=== PATIENT | male | born 1955 | race Caucasian/White ===

== ENCOUNTER 2023-06-11 08:52 | Emergency (ER) | payer BC, MEDICARE ==
[2023-06-11] MEDS ORDERED: methylPREDNISolone SOD SUCCI 125 MG/2 ML VIAL IM ONE (08:59)
[2023-06-11] MEDS ORDERED: diphenhydrAMINE 50 MG CAP PO STA (08:59)
--- NOTE | 2023-06-11 09:07 | ED ---
Skin/Abscess/FB HPI - General Chief complaint: Skin/Abscess/Foreign Body Stated complaint: Rash,Started on R Arm Time Seen by Provider: 06/11/23 08:58 Source: patient, RN notes reviewed Mode of arrival: ambulatory Limitations: no limitations - History of Present Illness Initial comments: 67-year-old male presents emergency Department with chief complaint rash. Patient states that the rash started approximate 4-5 days ago. He states bending different he had covid and flu vaccine a day and half prior to the rash starting. He states he recently traveled from [place] he is unsure if he came in contact with something. Patient states it's very itchy he states that he has noted hives. Patient denies a difficulty breathing no difficult swallowing. He has not tried any oral medications he states she's been using topical Benadryl - Related Data Previous Rx's Medication Instructions Recorded diphenhydrAMINE [Benadryl] 50 mg PO QID PRN #20 capsule 06/11/23 predniSONE 50 mg PO DAILY #5 tab 06/11/23 Allergies Allergy/AdvReac Type Severity Reaction Status Date / Time No Known Allergies Allergy Verified 06/11/23 08:59 Review of Systems ROS Statement: Those systems with pertinent positive or pertinent negative responses have been documented in the HPI. ROS Other: All systems not noted in ROS Statement are negative. Past Medical History Past Medical History: Hyperlipidemia History of Any Multi-Drug Resistant Organisms: None Reported Past Surgical History: No Surgical Hx Reported Past Psychological History: No Psychological Hx Reported Smoking Status: Never smoker Past Alcohol Use History: None Reported Past Drug Use History: None Reported General Exam Limitations: no limitations General appearance: alert, in no apparent distress Head exam: Present: atraumatic, normocephalic, normal inspection Eye exam: Present: normal appearance, PERRL, EOMI, other (Mild rash of the face). Absent: scleral icterus, conjunctival injection, periorbital swelling ENT exam: Present: normal oropharynx, mucous membranes moist, TM's normal bilaterally Neck exam: Present: normal inspection, full ROM. Absent: tenderness, meningismus, lymphadenopathy Respiratory exam: Present: normal lung sounds bilaterally. Absent: respiratory distress, wheezes, rales, rhonchi, stridor Cardiovascular Exam: Present: regular rate, normal rhythm, normal heart sounds. Absent: systolic murmur, diastolic murmur, rubs, gallop, clicks Skin exam: Present: warm, dry, intact, normal color, rash Course Vital Signs 06/11/23 08:53 Temperature 98 F Pulse Rate 86 Respiratory 16 Rate Blood Pressure 162/88 O2 Sat by Pulse 98 Oximetry Medical Decision Making - Medical Decision Making Was pt. sent in by a medical professional or institution (DAKSHA Jimenez, FLAT BED OPERATOR, urgent care, hospital, or correction...) When possible be specific @ -No Did you speak to anyone other than the patient for history (EMS, parent, family, police, friend...)? What history was obtained from this source @ -No Did you review nursing and triage notes (agree or disagree)? Why? @ -I reviewed and agree with nursing and triage notes Were old charts reviewed (outside hosp., previous admission, EMS record, old EKG, old radiological studies, urgent care reports/EKG's, correction records)? Report findings @ -No old charts were reviewed Differential Diagnosis (chest pain, altered mental status, abdominal pain women, abdominal pain men, vaginal bleeding, weakness, fever, dyspnea, syncope, headache, dizziness, GI bleed, back pain, seizure, CVA, palpatations, mental health, musculoskeletal)? @ -ALLERGIC reaction, contact dermatitis EKG interpreted by me (3pts min.). @ -None X-rays interpreted by me (1pt min.). @ -None done CT interpreted by me (1pt min.). @ -None done U/S interpreted by me (1pt. min.). @ -None done What testing was considered but not performed or refused? (CT, X-rays, U/S, labs)? Why? @ -None What meds were considered but not given or refused? Why? @ -None Did you discuss the management of the patient with other professionals (nara hess i.eDAKSHA Kilgore Dr[address] FLAT BED OPERATOR, lab, RT, psych nurse, medical social worker, medication care manager, teacher, affirmative action officer, case management manager)? Give summary @ -No Was smoking cessation discussed for >3mins.? @ -No Was critical care preformed (if so, how long)? @ -No Were there social determinants of health that impacted care today? How? (Homelessness, low income, unemployed, alcoholism, drug addiction, transportation, low edu. Level, literacy, decrease access to med. care, detention, rehab)? @ -No Was there de-escalation of care discussed even if they declined (Discuss DNR or withdrawal of care, Hospice)? DNR status @ -No What co-morbidities impacted this encounter? (DM, HTN, Smoking, COPD, CAD, Cancer, CVA, ARF, Chemo, Hep., AIDS, mental health diagnosis, sleep apnea, morbid obesity)? @ -None Was patient admitted / discharged? Hospital course, mention meds given and route, prescriptions, significant lab abnormalities, going to OR and other pertinent info. @ -Discharge patient is on day 4-5 of ALLERGIC reaction. Patient has not tried any oral anti-histamines. Patient was given Solu-Medrol, Benadryl. Patient discharged with steroids, Benadryl return parameters were discussed. Undiagnosed new problem with uncertain prognosis? @ -No Drug Therapy requiring intensive monitoring for toxicity (Heparin, Nitro, Insulin, Cardizem)? @ -No Were any procedures done? @ -No Diagnosis/symptom? @ -ALLERGIC reaction Acute, or Chronic, or Acute on Chronic? @ -Acute Uncomplicated (without systemic symptoms) or Complicated (systemic symptoms)? @ -Uncomplicated Side effects of treatment? @ -No Exacerbation, Progression, or Severe Exacerbation? @ -No Poses a threat to life or bodily function? How? (Chest pain, [place], [place], pneumonia, PE, COPD, DKA, ARF, appy, cholecystitis, CVA, Diverticulitis, Homicidal, Suicidal, threat to staff... and all critical care pts) @ -No Disposition Clinical Impression: Allergic reaction Disposition: HOME SELF-CARE Condition: Stable Instructions (If sedation given, give patient instructions): General Allergic Reaction (ED) Additional Instructions: Please return to the Emergency Department if symptoms worsen or any other concerns. Prescriptions: diphenhydrAMINE [Benadryl] 50 mg PO QID PRN #20 capsule PRN Reason: Allergic Reaction predniSONE 50 mg PO DAILY #5 tab Is patient prescribed a controlled substance at d/c from ED?: No Referrals: Nonstaff,Physician [Primary Care Provider] - 1-2 days Time of Disposition: 09:06
[2023-06-11 09:15] VITALS: RESP 16; TEMP 98
[2023-06-11 09:54] VITALS: BP 145/78; PULSE 80
== END 2023-06-11 09:47 | disposition home or self-care (01) ==
LOC: EC 08:52
DX: T80.62XA Other serum reaction due to vaccination, initial encounter (principal); R21 Rash and other nonspecific skin eruption
CPT/HCPCS: 99283; 96372; J2930; 99282

== ENCOUNTER → 2024-01-04 | Outpatient (CLI) | payer BC ==
[2024-01-04 07:20] LABS: African American GFR (CKD) >90 (>60 ml/min/1.73 sqM); Blood Urea Nitrogen 10 mg/dL (9-20); Non-African American GFR(CKD) >90 (>60 ml/min/1.73 sqM)
--- NOTE | 2024-01-04 09:23 | CT ---
EXAMINATION TYPE: CT chest w con DATE OF EXAM: 01/04/2024 COMPARISON: None HISTORY: 68-year-old male R91.1, Lung nodule TECHNIQUE: Contiguous axial scanning of the chest after the administration of 100 mL of Isovue 300. Coronal/sagittal reconstructions performed. CT DLP: 452.30mGycm. Automatic exposure control utilized for a dose reduction. FINDINGS: The heart is normal size without pericardial effusion. LAD coronary artery calcifications are present . Conventional arch vessel branching anatomy. Ectatic upper descending thoracic aorta 3.4 cm. Borderlin e aneurysm mid descending thoracic aorta 3.0 cm an ectatic lower descending thoracic aorta to 2.8 cm. There is large caliber to the main right and left pulmonary arteries measuring up to 2.8 cm suggestin g underlying pulmonary hypertension. No thoracic lymph adenopathy is size criteria. Minimal biapical pleural parenchymal scarring. No consolidation or pleural effusion. Minimal scattere d emphysematous change noted. No suspicious pulmonary nodule is seen. There is a small hiatal hernia. Scattered small hepatic cysts measuring up to 8 mm. Fullness of the bilateral renal collecting systems. Consider short interval follow-up to exclude any early developing hydronephrosis. Bones: Moderate degenerative disc disease mid to lower thoracic spine. Superior endplate compression deformity T7 is age indeterminate with suspected chronic given the lack of any paravertebral soft tis gee swelling. IMPRESSION: 1. COPD with minimal emphysema. 2. No definite suspicious pulmonary nodule is seen. If persistent concern, the exam can be reviewed w ith directed attention. 3. There may be underlying pulmonary arterial hypertension. 4. Partially visualized fullness of the bilateral renal collecting systems. This may be a transient f inding. Consider short interval follow-up renal ultrasound to exclude early developing hydronephrosis . 5. Small hiatal hernia.
== END | disposition home or self-care (01) ==
LOC: RADCTMAIN 06:14
DX: J44.9 Chronic obstructive pulmonary disease, unspecified (principal); J43.9 Emphysema, unspecified; K44.9 Diaphragmatic hernia without obstruction or gangrene; R91.1 Solitary pulmonary nodule
CPT/HCPCS: 82565; 84520; 71260; 36415; Q9967

== ENCOUNTER → 2024-02-18 | Outpatient (CLI) | payer BC ==
--- NOTE | 2024-02-18 14:42 | US ---
EXAMINATION TYPE: US kidneys/renal and bladder DATE OF EXAM: 02/18/2024 COMPARISON: NONE CLINICAL INDICATION: Male, 68 years old with history of N28.89 OTHER SPECIFIED DISORDERS OF KIDNEY AN D URE; renal fullness mentioned on recent CT EXAM MEASUREMENTS: Right Kidney: 10.5 x 4.4 x 4.8 cm Left Kidney: 11.3 x 3.6 x 6.1 cm Right Kidney: No hydronephrosis or masses seen Left Kidney: No hydronephrosis or masses seen Bladder: wnl Bilateral Jets seen: Yes There is no evidence for hydronephrosis at this point in time. No nephrolithiasis is seen. No lev s are identified. The urinary bladder is anechoic. Bilateral ureteral jets are seen. IMPRESSION: No significant abnormality of the kidneys or urinary bladder
== END | disposition home or self-care (01) ==
LOC: RADUSWWP 13:21
PROVIDERS: ATTEND Family Medicine
DX: N28.89 Other specified disorders of kidney and ureter (principal)
CPT/HCPCS: 76770

== ENCOUNTER → 2024-04-04 | Outpatient (CLI) | payer BC | END | disposition home or self-care (01) | LOC: LABPRL 08:30 | PROVIDERS: ATTEND Family Medicine | DX: R05.9 Cough, unspecified (principal) | CPT/HCPCS: 87635 ==

== ENCOUNTER → 2024-07-22 | Outpatient (CLI) | payer BC ==
[2024-07-22 08:14] LABS: African American GFR (CKD) >90 (>60 ml/min/1.73 sqM); Blood Urea Nitrogen 8 mg/dL (9-20); Non-African American GFR(CKD) >90 (>60 ml/min/1.73 sqM)
--- NOTE | 2024-07-22 12:44 | CT ---
EXAMINATION TYPE: CT chest w con CT DLP: 463.7 mGycm, Automated exposure control for dose reduction was used. DATE OF EXAM: 07/22/2024 8:28 AM COMPARISON: CT chest 01/04/2024 CLINICAL INDICATION:Male, 69 years old with history of R91.1 PULM NODULE; PHH, Lung nodules TECHNIQUE: Multiple axial images were obtained through the chest following the administration of 100 cc of Isovue 300. . Coronal and sagittal reformats reviewed. FINDINGS: LUNGS/ PLEURA: No pleural effusion, pneumothorax, focal consolidation. Minimal biapical pleural-paren chymal scarring. Minimal scattered emphysematous changes noted. No suspicious pulmonary nodules or ma sses. AIRWAY: Patent and unremarkable.. HEART: Size within normal limits.No significant pericardial effusion. Small coronary calcifications. MEDIASTINUM: No gross evidence of adenopathy. VASCULATURE: No aortic aneurysm. MUSCULOSKELETAL: Moderate degenerative disc disease mid to lower thoracic spine. Chronic superior end plate compression deformity T7. SOFT TISSUES/LYMPH NODES: Unremarkable. LOWER NECK: No significant findings. UPPER ABDOMEN: Couple of stable subcentimeter hypodense foci within the liver which are too small to characterize but likely represent cysts. Small hiatal hernia. No appearance of the visualized bilater al renal collecting systems. IMPRESSION: 1. No suspicious pulmonary nodule or mass. 2. Minimal COPD changes. [facility], , 07/22/2024 12:42 PM
== END | disposition home or self-care (01) ==
LOC: RADCTMAIN 07:32
PROVIDERS: ATTEND Thoracic Surgery (Cardiothoracic Vascular Surgery)
DX: J44.9 Chronic obstructive pulmonary disease, unspecified (principal); R91.1 Solitary pulmonary nodule; K44.9 Diaphragmatic hernia without obstruction or gangrene
CPT/HCPCS: 82565; 84520; 71260; 36415; Q9967

== ENCOUNTER → 2024-08-15 | Outpatient (CLI) | payer BC ==
[2024-08-15 13:56] LABS: African American GFR (CKD) >90 (>60 ml/min/1.73 sqM); Blood Urea Nitrogen 5 mg/dL (9-20); Non-African American GFR(CKD) >90 (>60 ml/min/1.73 sqM)
--- NOTE | 2024-08-15 14:29 | CT ---
EXAMINATION TYPE: CT soft tissue neck w con DATE OF EXAM: 08/15/2024 2:15 PM COMPARISON: None. CLINICAL INDICATION: Male, 69 years old with history of R51.9 HEADACHE; PHH, Lump on the back of head , marked by radiopaque BB. Pt states it throbs and he has had it for 1 year. TECHNIQUE: Standard enhanced CT of the neck. Axial sections with coronal and sagittal reformats were obtained. Contrast used:100 ml mL of Isovue 300 with IV Contrast, (None if empty) Oral contrast used: (None if empty) CT DLP: 678 mGycm, Automated exposure control for dose reduction was used. FINDINGS: Brain: Visualized portions are grossly unremarkable. Orbits: Unremarkable Sinuses: Grossly unremarkable. Spaces of the neck: Clear and symmetric. Palpable abnormality in the left posterior scalp does not de monstrate mass, organizing fluid collection or lymph node. There are a few superficial vessels in thi s region which are no however different from the contralateral side. No other finding visualized. Musculoskeletal: No acute osseous pathology. Lymph nodes: Multiple nonenlarged lymph nodes are seen along both anterior chains of the neck. Vascular structures: Visualized major arteries are patent without evidence of aneurysm. Thoracic Inlet/airway: Airway is patent. The lung apices are clear. Soft tissues/Thyroid: Thyroid and remainder of the soft tissues are unremarkable. Other: none. IMPRESSION: Palpable location infiltrates only some superficial veins no organizing fluid collection mass or lymp hadenopathy. [facility], , 08/15/2024 2:26 PM
== END | disposition home or self-care (01) ==
LOC: RADCTMAIN 13:10
PROVIDERS: ATTEND Family Medicine
DX: R51.9 Headache, unspecified (principal); R22.1 Localized swelling, mass and lump, neck
CPT/HCPCS: 82565; 84520; 70491; 36415; Q9967

== ENCOUNTER 2025-01-27 17:32 | Emergency (ER) | payer BC ==
--- NOTE | 2025-01-27 17:51 | ED ---
General Adult HPI - General Chief complaint: Extremity Problem,Nontraumatic Stated complaint: L underarm pain Time Seen by Provider: 01/27/25 17:45 Source: patient, RN notes reviewed Mode of arrival: ambulatory Limitations: no limitations - History of Present Illness Onset/Timin -: days(s) Time: 11:00 Location: left, upper extremity Radiation: non-radiation Severity scale (1-10): 4 Quality: dull Consistency: constant Improves with: none Worsens with: none Associated Symptoms: denies other symptoms Treatments Prior to Arrival: none - Related Data Previous Rx's Medication Instructions Recorded diphenhydrAMINE [Benadryl] 50 mg PO QID PRN #20 capsule 06/11/23 predniSONE 50 mg PO DAILY #5 tab 06/11/23 Allergies Allergy/AdvReac Type Severity Reaction Status Date / Time No Known Allergies Allergy Verified 01/27/25 17:41 Review of Systems ROS Statement: Those systems with pertinent positive or pertinent negative responses have been documented in the HPI. ROS Other: All systems not noted in ROS Statement are negative. Past Medical History Past Medical History: Hyperlipidemia History of Any Multi-Drug Resistant Organisms: None Reported Past Surgical History: No Surgical Hx Reported Past Psychological History: No Psychological Hx Reported Smoking Status: Never smoker Past Alcohol Use History: None Reported Past Drug Use History: None Reported General Exam Limitations: no limitations General appearance: alert, in no apparent distress Head exam: Present: atraumatic, normocephalic, normal inspection Eye exam: Present: normal appearance, PERRL, EOMI. Absent: scleral icterus, conjunctival injection, periorbital swelling ENT exam: Present: normal exam, mucous membranes moist Neck exam: Present: normal inspection. Absent: tenderness, meningismus, lympha denopathy Respiratory exam: Present: normal lung sounds bilaterally. Absent: respiratory distress, wheezes, rales, rhonchi, stridor Cardiovascular Exam: Present: regular rate, normal rhythm, normal heart sounds. Absent: systolic murmur, diastolic murmur, rubs, gallop, clicks GI/Abdominal exam: Present: soft, normal bowel sounds. Absent: distended, tenderness, guarding, rebound, rigid Extremities exam: Present: full ROM, tenderness (Positive point TTP in left axilla without obvious open wound or overlying erythema, warmth, red streaking), normal capillary refill, other (Distal LUE neurovascular and motor function intact in all major joints. Radial pulse +2). Absent: pedal edema, joint sw elling, calf tenderness Back exam: Present: normal inspection Neurological exam: Present: alert, oriented X3, CN II-XII intact Psychiatric exam: Present: normal affect, normal mood Skin exam: Present: warm, dry, intact, normal color. Absent: rash Course Vital Signs 01/27/25 17:37 Temperature 97.9 F Pulse Rate 64 Respiratory 16 Rate Blood Pressure 136/78 O2 Sat by Pulse 96 Oximetry Medical Decision Making - Medical Decision Making Was pt. sent in by a medical professional or institution (, PA, PRINT COLOR OPERATOR, urgent care, hospital, or long term...) When possible be specific @ -[No] Did you speak to anyone other than the patient for history (EMS, parent, family, police, friend...)? What history was obtained from this source @ -[No] Did you review nursing and triage notes (agree or disagree)? Why? @ -[I reviewed and agree with nursing and triage notes] Were old charts reviewed (outside hosp., previous admission, EMS record, old EKG, old radiological studies, urgent care reports/EKG's, long term records)? Report findings @ -[No old charts were reviewed] Differential Diagnosis (chest pain, altered mental status, abdominal pain women, abdominal pain men, vaginal bleeding, weakness, fever, dyspnea, syncope, headache, dizziness, GI bleed, back pain, seizure, CVA, palpatations, mental health, musculoskeletal)? @ -Differential Musculoskeletal Muscular strain, contusion, ligament sprain, fracture, arthritis, septic arthritis, bursitis, cellulitis, muscle spasm, nerve compression, DVT, arterial occlusion, herpes zoster, electrolyte abnormality, tumor.... This is not meant to be in all inclusive list EKG interpreted by me (3pts min.). @ -Not done X-rays interpreted by me (1pt min.). @ -[None done] CT interpreted by me (1pt min.). @ -[None done] U/S interpreted by me (1pt. min.). @ -Left axillary ultrasound shows no significant findings. What testing was considered but not performed or refused? (CT, X-rays, U/S, labs)? Why? @ -[None] What meds were considered but not given or refused? Why? @ -Patient declined p.o. Tylenol/Motrin for pain both in ER or sent to pharmacy. Did you discuss the management of the patient with other professionals (professionals i.e. , PA, PRINT COLOR OPERATOR, lab, RT, psych nurse, criminal justice social worker, cardroom supervisor, teacher, forest officer, patient case manager)? Give summary @ -[No] Was smoking cessation discussed for >3mins.? @ -[No] Was critical care preformed (if so, how long)? @ -[No] Were there social determinants of health that impacted care today? How? (Homelessness, low income, unemployed, alcoholism, drug addiction, transportation, low edu. Level, literacy, decrease access to med. care, penitentiary, rehab)? @ -[No] Was there de-escalation of care discussed even if they declined (Discuss DNR or withdrawal of care, Hospice)? DNR status @ -[No] What co-morbidities impacted this encounter? (DM, HTN, Smoking, COPD, CAD, Cancer, CVA, ARF, Chemo, Hep., AIDS, mental health diagnosis, sleep apnea, morbid obesity)? @ -[None] Was patient admitted / discharged? Hospital course, mention meds given and route, prescriptions, significant lab abnormalities, going to OR and other pertinent info. @ -[hospital course] Undiagnosed new problem with uncertain prognosis? @ -[No] Drug Therapy requiring intensive monitoring for toxicity (Heparin, Nitro, Insulin, Cardizem)? @ -[No] Were any procedures done? @ -[No] Diagnosis/symptom? @ -Axillary lymphadenopathy Acute, or Chronic, or Acute on Chronic? @ -Acute Uncomplicated (without systemic symptoms) or Complicated (systemic symptoms)? @ -Uncomplicated Side effects of treatment? @ -[No] Exacerbation, Progression, or Severe Exacerbation? @ -[No] Poses a threat to life or bodily function? How? (Chest pain, [place], [place], pneumonia, PE, COPD, DKA, ARF, appy, cholecystitis, CVA, Diverticulitis, Homicidal, Suicidal, threat to staff... and all critical care pts) @ -[No] Disposition Clinical Impression: Lymphadenopathy, axillary Disposition: HOME SELF-CARE Condition: Good Instructions (If sedation given, give patient instructions): Lymphadenopathy (ED) Additional Instructions: Warm compress for 10 minutes up to 4 times daily. Alternate Tylenol/Motrin every 4 hours for pain. Follow-up with PCP for any ongoing symptoms. Is patient prescribed a controlled substance at d/c from ED?: No Referrals: Naina Meredith MD [Primary Care Provider] - 1-2 days Time of Disposition: 19:21
--- NOTE | 2025-01-27 19:10 | US ---
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 No suspicious abnormality by ultrasound in area of concern left axilla [facility], , 01/27/2025 7:08 PM
[2025-01-27 19:40] VITALS: BP 111/70; PULSE 53; RESP 14; TEMP 98.3
== END 2025-01-27 19:36 | disposition home or self-care (01) ==
LOC: EC 17:32
DX: R59.0 Localized enlarged lymph nodes (principal)
CPT/HCPCS: 99283